=== PATIENT | male | born 1975 | race African-American/Black ===

== ENCOUNTER 2023-06-05 18:30 | Inpatient (IN) | payer OTHER ==
[2023-06-05 19:03] VITALS: BMI 22.9
[2023-06-05] MEDS ORDERED: NALOXONE HCL 0.4 MG/ML VIAL IM PRN (21:17)
[2023-06-05] MEDS ORDERED: NALOXONE HCL (KLOXXADO) 8 MG SPRAY NS PRN (21:17)
[2023-06-05] MEDS ORDERED: MAG HYDROX/AL HYDROX/SIMETH 30 ML UNIT-DOSE CUP PO PRN (21:17)
[2023-06-05] MEDS ORDERED: ONDANSETRON *ODT* 4 MG TABLET SL PRN (21:17)
[2023-06-05] MEDS ORDERED: LOPERAMIDE HCL 2 MG CAPSULE PO PRN (21:17)
[2023-06-05] MEDS ORDERED: IBUPROFEN 400 MG TABLET (FP) PO PRN (21:17)
[2023-06-05] MEDS ORDERED: BISMUTH SUBSALICYLATE 524 MG/30 ML PO PRN (21:17)
[2023-06-05] MEDS ORDERED: ACETAMINOPHEN 325 MG TABLET (FP) PO PRN (21:17)
[2023-06-05] MEDS ORDERED: BENZOCAINE/MENTHOL (CHLORASEPTIC ) LOZENGE MM PRN (21:17)
[2023-06-05] MEDS ORDERED: guaiFENesin 600 MG TABLET.ER (FP) PO PRN (21:17)
[2023-06-05] MEDS ORDERED: MAGNESIUM HYDROX 2400MG/30ML ORAL SUSPENSION 30 ML CUP PO PRN (21:17)
[2023-06-05] MEDS ORDERED: POLYETHYLENE GLYCOL (HEALTHYLAX) 3350 17 GM PACKET PO PRN (21:17)
[2023-06-05] MEDS ORDERED: BENZONATATE 200 MG CAPSULE PO PRN (21:17)
[2023-06-05] MEDS ORDERED: DICYCLOMINE HCL 10 MG CAPSULE PO PRN (21:17)
[2023-06-05] MEDS ORDERED: MELATONIN 5 MG TABLETS ONE (22:18)
[2023-06-05] MEDS ORDERED: IBUPROFEN 600 MG TABLET (FP) PO ONE (22:23)
[2023-06-05] MEDS: IBUPROFEN 600 MG TABLET (FP) PO PRN (22:45)
[2023-06-05] MEDS: MELATONIN 5 MG TABLETS PO SCH (22:47)
[2023-06-05] MEDS: THIAMINE HCL 100 MG TABLET (FP) PO SCH (22:48)
[2023-06-06] MEDS ORDERED: chlordiazePOXIDE HCL 25 MG CAPSULE PO SCH (05:00)
[2023-06-06] MEDS ORDERED: chlordiazePOXIDE HCL 25 MG CAPSULE PO PRN (09:55)
[2023-06-06] MEDS: PRENATAL VITAMINS W/ FOLIC ACID TABLET (FP) PO SCH (10:13)
[2023-06-06] MEDS: FAMOTIDINE 20 MG TABLET PO SCH (10:14)
[2023-06-06] MEDS: chlordiazePOXIDE HCL 25 MG CAPSULE PO SCH ×3 (10:37→22:21)
[2023-06-06 13:02] LABS: HEMATOCRIT 38.4 % (35.4-49); HEMOGLOBIN 13.3 GM/dL (11.7-16.9); MCH 36.5 pg (25.7-33.7); MCHC 34.7 g/dl (32.0-35.9); MEAN CELL VOLUME 105.2 fl (80-96); PLATELET COUNT 157 10^3/uL (134-434); RBC 3.65 M/mm3 (4.00-5.60); RDW 13.7 % (11.9-15.9)
[2023-06-06 13:06] LABS: POTASSIUM 4.1 mmol/L (3.5-5.1)
[2023-06-06 13:12] LABS: CALCIUM 8.8 mg/dL (8.5-10.1)
[2023-06-06 13:13] LABS: ALBUMIN 3.6 g/dl (3.4-5.0); BLOOD UREA NITROGEN 10.3 mg/dL (7-18)
[2023-06-06 13:16] LABS: CREATININE 0.7 mg/dL (0.55-1.3)
[2023-06-06 13:18] LABS: BILIRUBIN,TOTAL 1.4 mg/dL (0.2-1); TOT PROT 7.1 g/dl (6.4-8.2)
[2023-06-06] MEDS ORDERED: IBUPROFEN 600 MG TABLET (FP) PO ONE (13:32)
[2023-06-06] MEDS: IBUPROFEN 600 MG TABLET (FP) PO PRN ×2 (14:22→22:23)
[2023-06-06] MEDS: THIAMINE HCL 100 MG TABLET (FP) PO SCH (22:21)
[2023-06-06] MEDS: MELATONIN 5 MG TABLETS PO SCH (22:21)
[2023-06-07] MEDS: chlordiazePOXIDE HCL 25 MG CAPSULE PO SCH ×4 (05:41→22:10)
[2023-06-07] MEDS: PRENATAL VITAMINS W/ FOLIC ACID TABLET (FP) PO SCH (10:15)
[2023-06-07] MEDS: FAMOTIDINE 20 MG TABLET PO SCH (10:15)
[2023-06-07] MEDS: MELATONIN 5 MG TABLETS PO SCH (22:10)
[2023-06-07] MEDS: THIAMINE HCL 100 MG TABLET (FP) PO SCH (22:10)
[2023-06-08] MEDS ORDERED: chlordiazePOXIDE HCL 10 MG CAPSULE PO PRN
[2023-06-08] MEDS: chlordiazePOXIDE HCL 10 MG CAPSULE PO SCH ×4 (05:34→22:31)
[2023-06-08] MEDS: hydrOXYzine PAMOATE 25 MG CAPSULE (FP) PO PRN (10:10)
[2023-06-08] MEDS: METHOCARBAMOL 500 MG TABLET PO PRN (10:10)
[2023-06-08] MEDS: PRENATAL VITAMINS W/ FOLIC ACID TABLET (FP) PO SCH (10:10)
[2023-06-08] MEDS: FAMOTIDINE 20 MG TABLET PO SCH (10:10)
[2023-06-08] MEDS: THIAMINE HCL 100 MG TABLET (FP) PO SCH (22:31)
[2023-06-08] MEDS: MELATONIN 5 MG TABLETS PO SCH (22:31)
[2023-06-09] MEDS: chlordiazePOXIDE HCL 10 MG CAPSULE PO SCH ×2 (05:24→17:17)
[2023-06-09] MEDS: hydrOXYzine PAMOATE 25 MG CAPSULE (FP) PO PRN ×2 (10:13→22:28)
[2023-06-09] MEDS: PRENATAL VITAMINS W/ FOLIC ACID TABLET (FP) PO SCH (10:13)
[2023-06-09] MEDS: METHOCARBAMOL 500 MG TABLET PO PRN ×2 (10:13→22:28)
[2023-06-09] MEDS: FAMOTIDINE 20 MG TABLET PO SCH (10:13)
[2023-06-09 13:01] LABS: HEMATOCRIT 41.9 % (35.4-49); HEMOGLOBIN 14.4 GM/dL (11.7-16.9); MCH 36.6 pg (25.7-33.7); MCHC 34.3 g/dl (32.0-35.9); MEAN CELL VOLUME 106.6 fl (80-96); MEAN PLT VOLUME 8.7 fl (7.5-11.1); PLATELET COUNT 195 10^3/uL (134-434); RBC 3.93 M/mm3 (4.00-5.60); RDW 13.5 % (11.9-15.9); WHITE BLOOD COUNT 3.7 K/mm3 (4.0-10.0)
[2023-06-09 13:09] LABS: BILIRUBIN,TOTAL 0.7 mg/dL (0.2-1)
[2023-06-09] MEDS: THIAMINE HCL 100 MG TABLET (FP) PO SCH (22:28)
[2023-06-09] MEDS: MELATONIN 5 MG TABLETS PO SCH (22:28)
[2023-06-10] MEDS ORDERED: chlordiazePOXIDE HCL 10 MG CAPSULE PO ONE (05:00)
[2023-06-10] MEDS: FAMOTIDINE 20 MG TABLET PO SCH (10:16)
[2023-06-10] MEDS: PRENATAL VITAMINS W/ FOLIC ACID TABLET (FP) PO SCH (10:16)
[2023-06-10] MEDS: METHOCARBAMOL 500 MG TABLET PO PRN ×2 (10:16→21:38)
[2023-06-10] MEDS: hydrOXYzine PAMOATE 25 MG CAPSULE (FP) PO PRN (10:17)
[2023-06-10] MEDS: THIAMINE HCL 100 MG TABLET (FP) PO SCH (21:36)
[2023-06-10] MEDS: MELATONIN 5 MG TABLETS PO SCH (21:36)
[2023-06-11] MEDS: PRENATAL VITAMINS W/ FOLIC ACID TABLET (FP) PO SCH (10:55)
[2023-06-11] MEDS: FAMOTIDINE 20 MG TABLET PO SCH (10:55)
[2023-06-11] MEDS: MELATONIN 5 MG TABLETS PO SCH (21:28)
[2023-06-11] MEDS: THIAMINE HCL 100 MG TABLET (FP) PO SCH (21:28)
[2023-06-11] MEDS: IBUPROFEN 600 MG TABLET (FP) PO PRN (21:30)
[2023-06-11] MEDS: hydrOXYzine PAMOATE 25 MG CAPSULE (FP) PO PRN (21:30)
[2023-06-12] MEDS: PRENATAL VITAMINS W/ FOLIC ACID TABLET (FP) PO SCH (10:06)
[2023-06-12] MEDS: FAMOTIDINE 20 MG TABLET PO SCH (10:07)
[2023-06-12] MEDS: IBUPROFEN 600 MG TABLET (FP) PO PRN (10:08)
[2023-06-12] MEDS: THIAMINE HCL 100 MG TABLET (FP) PO SCH (21:41)
[2023-06-12] MEDS: MELATONIN 5 MG TABLETS PO SCH (21:42)
[2023-06-13] MEDS: FAMOTIDINE 20 MG TABLET PO SCH (10:11)
[2023-06-13] MEDS: PRENATAL VITAMINS W/ FOLIC ACID TABLET (FP) PO SCH (10:12)
[2023-06-13] MEDS: IBUPROFEN 600 MG TABLET (FP) PO PRN (10:12)
[2023-06-13] MEDS: MELATONIN 5 MG TABLETS PO SCH (21:30)
[2023-06-13] MEDS: THIAMINE HCL 100 MG TABLET (FP) PO SCH (21:30)
[2023-06-13] MEDS: ACETAMINOPHEN 325 MG TABLET (FP) PO PRN (21:31)
[2023-06-14] MEDS: FAMOTIDINE 20 MG TABLET PO SCH (10:18)
[2023-06-14] MEDS: PRENATAL VITAMINS W/ FOLIC ACID TABLET (FP) PO SCH (10:18)
[2023-06-14 16:44] LABS: INR 0.98 (0.83-1.09); PROTHROMBIN TIME (PATIENT) 11.4 SEC (9.7-13.0)
[2023-06-14] MEDS: MELATONIN 5 MG TABLETS PO SCH (21:34)
[2023-06-14] MEDS: ACETAMINOPHEN 325 MG TABLET (FP) PO PRN (21:35)
[2023-06-14] MEDS: THIAMINE HCL 100 MG TABLET (FP) PO SCH (21:35)
[2023-06-15] MEDS: FAMOTIDINE 20 MG TABLET PO SCH (10:08)
[2023-06-15] MEDS: PRENATAL VITAMINS W/ FOLIC ACID TABLET (FP) PO SCH (10:08)
[2023-06-15] MEDS: MELATONIN 5 MG TABLETS PO SCH (21:47)
[2023-06-15] MEDS: THIAMINE HCL 100 MG TABLET (FP) PO SCH (21:47)
[2023-06-15] MEDS: ACETAMINOPHEN 325 MG TABLET (FP) PO PRN (21:48)
[2023-06-16] MEDS: PRENATAL VITAMINS W/ FOLIC ACID TABLET (FP) PO SCH (09:54)
[2023-06-16] MEDS: FAMOTIDINE 20 MG TABLET PO SCH (09:54)
[2023-06-16] MEDS: ACETAMINOPHEN 325 MG TABLET (FP) PO PRN (09:55)
[2023-06-16] MEDS: MELATONIN 5 MG TABLETS PO SCH (21:29)
[2023-06-16] MEDS: THIAMINE HCL 100 MG TABLET (FP) PO SCH (21:29)
[2023-06-17] MEDS: FAMOTIDINE 20 MG TABLET PO SCH (10:21)
[2023-06-17] MEDS: PRENATAL VITAMINS W/ FOLIC ACID TABLET (FP) PO SCH (10:21)
[2023-06-17] MEDS: ACETAMINOPHEN 325 MG TABLET (FP) PO PRN (10:22)
[2023-06-17] MEDS: GABAPENTIN 300 MG CAPSULE PO SCH ×2 (14:31→21:41)
[2023-06-17] MEDS: LACTULOSE 20 GM/30 ML UDC (FOR ORAL USE ONLY) PO SCH ×2 (14:31→21:41)
[2023-06-17] MEDS: MELATONIN 5 MG TABLETS PO SCH (21:41)
[2023-06-17] MEDS: THIAMINE HCL 100 MG TABLET (FP) PO SCH (21:41)
[2023-06-17] MEDS: LIDOCAINE PATCH REMOVAL MC SCH (21:42)
[2023-06-18] MEDS: LACTULOSE 20 GM/30 ML UDC (FOR ORAL USE ONLY) PO SCH ×3 (06:49→21:32)
[2023-06-18] MEDS: LIDOCAINE 5% TOPICAL PATCH TP SCH (10:06)
[2023-06-18] MEDS: GABAPENTIN 300 MG CAPSULE PO SCH ×2 (10:06→21:31)
[2023-06-18] MEDS: PRENATAL VITAMINS W/ FOLIC ACID TABLET (FP) PO SCH (10:06)
[2023-06-18] MEDS: FAMOTIDINE 20 MG TABLET PO SCH (10:06)
[2023-06-18] MEDS: MELATONIN 5 MG TABLETS PO SCH (21:31)
[2023-06-18] MEDS: THIAMINE HCL 100 MG TABLET (FP) PO SCH (21:31)
[2023-06-18] MEDS: ACETAMINOPHEN 325 MG TABLET (FP) PO PRN (21:32)
[2023-06-18] MEDS: LIDOCAINE PATCH REMOVAL MC SCH (21:32)
[2023-06-19] MEDS: LACTULOSE 20 GM/30 ML UDC (FOR ORAL USE ONLY) PO SCH ×3 (07:04→21:27)
[2023-06-19] MEDS: GABAPENTIN 300 MG CAPSULE PO SCH ×2 (09:43→21:27)
[2023-06-19] MEDS: FAMOTIDINE 20 MG TABLET PO SCH (09:43)
[2023-06-19] MEDS: LIDOCAINE 5% TOPICAL PATCH TP SCH (09:43)
[2023-06-19] MEDS: PRENATAL VITAMINS W/ FOLIC ACID TABLET (FP) PO SCH (09:43)
[2023-06-19] MEDS: MELATONIN 5 MG TABLETS PO SCH (21:27)
[2023-06-19] MEDS: THIAMINE HCL 100 MG TABLET (FP) PO SCH (21:27)
[2023-06-19] MEDS: LIDOCAINE PATCH REMOVAL MC SCH (21:29)
[2023-06-20] MEDS: LACTULOSE 20 GM/30 ML UDC (FOR ORAL USE ONLY) PO SCH ×3 (06:56→21:39)
[2023-06-20] MEDS: FAMOTIDINE 20 MG TABLET PO SCH (10:29)
[2023-06-20] MEDS: LIDOCAINE 5% TOPICAL PATCH TP SCH (10:29)
[2023-06-20] MEDS: GABAPENTIN 300 MG CAPSULE PO SCH ×2 (10:29→21:38)
[2023-06-20] MEDS: PRENATAL VITAMINS W/ FOLIC ACID TABLET (FP) PO SCH (10:29)
[2023-06-20] MEDS: MELATONIN 5 MG TABLETS PO SCH (21:38)
[2023-06-20] MEDS: LIDOCAINE PATCH REMOVAL MC SCH (21:38)
[2023-06-20] MEDS: THIAMINE HCL 100 MG TABLET (FP) PO SCH (21:38)
[2023-06-21] MEDS: LACTULOSE 20 GM/30 ML UDC (FOR ORAL USE ONLY) PO SCH ×3 (06:22→21:08)
[2023-06-21] MEDS: LIDOCAINE 5% TOPICAL PATCH TP SCH (09:46)
[2023-06-21] MEDS: PRENATAL VITAMINS W/ FOLIC ACID TABLET (FP) PO SCH (09:46)
[2023-06-21] MEDS: GABAPENTIN 300 MG CAPSULE PO SCH ×2 (09:46→21:07)
[2023-06-21] MEDS: FAMOTIDINE 20 MG TABLET PO SCH (09:46)
[2023-06-21] MEDS: ACETAMINOPHEN 325 MG TABLET (FP) PO PRN (13:25)
[2023-06-21] MEDS: THIAMINE HCL 100 MG TABLET (FP) PO SCH (21:07)
[2023-06-21] MEDS: MELATONIN 5 MG TABLETS PO SCH (21:07)
[2023-06-21] MEDS: LIDOCAINE PATCH REMOVAL MC SCH (21:08)
[2023-06-22] MEDS: LACTULOSE 20 GM/30 ML UDC (FOR ORAL USE ONLY) PO SCH ×3 (07:01→21:31)
[2023-06-22] MEDS: FAMOTIDINE 20 MG TABLET PO SCH (09:44)
[2023-06-22] MEDS: GABAPENTIN 300 MG CAPSULE PO SCH ×2 (09:45→21:30)
[2023-06-22] MEDS: PRENATAL VITAMINS W/ FOLIC ACID TABLET (FP) PO SCH (09:45)
[2023-06-22] MEDS: LIDOCAINE 5% TOPICAL PATCH TP SCH (09:46)
[2023-06-22] MEDS: METHYL SALICYLATE/MENTHOL OINT 30 GM TUBE TP SCH (14:13)
[2023-06-22] MEDS: THIAMINE HCL 100 MG TABLET (FP) PO SCH (21:30)
[2023-06-22] MEDS: MELATONIN 5 MG TABLETS PO SCH (21:30)
[2023-06-22] MEDS: LIDOCAINE PATCH REMOVAL MC SCH (21:31)
[2023-06-23] MEDS: LACTULOSE 20 GM/30 ML UDC (FOR ORAL USE ONLY) PO SCH ×3 (06:50→21:37)
[2023-06-23] MEDS: GABAPENTIN 300 MG CAPSULE PO SCH ×2 (09:49→21:37)
[2023-06-23] MEDS: PRENATAL VITAMINS W/ FOLIC ACID TABLET (FP) PO SCH (09:49)
[2023-06-23] MEDS: FAMOTIDINE 20 MG TABLET PO SCH (09:49)
[2023-06-23] MEDS: LIDOCAINE 5% TOPICAL PATCH TP SCH (09:50)
[2023-06-23] MEDS: METHYL SALICYLATE/MENTHOL OINT 30 GM TUBE TP SCH (09:50)
[2023-06-23] MEDS: MELATONIN 5 MG TABLETS PO SCH (21:37)
[2023-06-23] MEDS: THIAMINE HCL 100 MG TABLET (FP) PO SCH (21:37)
[2023-06-23] MEDS: LIDOCAINE PATCH REMOVAL MC SCH (21:37)
[2023-06-24] MEDS: LACTULOSE 20 GM/30 ML UDC (FOR ORAL USE ONLY) PO SCH ×3 (06:28→21:32)
[2023-06-24] MEDS: FAMOTIDINE 20 MG TABLET PO SCH (09:38)
[2023-06-24] MEDS: GABAPENTIN 300 MG CAPSULE PO SCH ×2 (09:38→23:45)
[2023-06-24] MEDS: PRENATAL VITAMINS W/ FOLIC ACID TABLET (FP) PO SCH (09:38)
[2023-06-24] MEDS: LIDOCAINE 5% TOPICAL PATCH TP SCH (09:39)
[2023-06-24] MEDS: METHYL SALICYLATE/MENTHOL OINT 30 GM TUBE TP SCH (10:10)
[2023-06-24] MEDS: CYANOCOBALAMIN (VITAMIN B-12) 1000 MCG/1 ML VIAL IM SCH (10:11)
[2023-06-24] MEDS: ACETAMINOPHEN 325 MG TABLET (FP) PO PRN (10:47)
[2023-06-24] MEDS: MELATONIN 5 MG TABLETS PO SCH (21:32)
[2023-06-24] MEDS: LIDOCAINE PATCH REMOVAL MC SCH (21:32)
[2023-06-24] MEDS: THIAMINE HCL 100 MG TABLET (FP) PO SCH (23:45)
[2023-06-25] MEDS: LACTULOSE 20 GM/30 ML UDC (FOR ORAL USE ONLY) PO SCH ×3 (06:33→21:40)
[2023-06-25] MEDS: GABAPENTIN 300 MG CAPSULE PO SCH ×2 (09:59→21:40)
[2023-06-25] MEDS: FAMOTIDINE 20 MG TABLET PO SCH (09:59)
[2023-06-25] MEDS: PRENATAL VITAMINS W/ FOLIC ACID TABLET (FP) PO SCH (09:59)
[2023-06-25] MEDS: METHYL SALICYLATE/MENTHOL OINT 30 GM TUBE TP SCH (10:00)
[2023-06-25] MEDS: LIDOCAINE 5% TOPICAL PATCH TP SCH (10:01)
[2023-06-25] MEDS: MELATONIN 5 MG TABLETS PO SCH (21:39)
[2023-06-25] MEDS: THIAMINE HCL 100 MG TABLET (FP) PO SCH (21:40)
[2023-06-25 22:33] LABS: PH,URINE 5.5 (5.0-8.0); URINE APPEARANCE CLEAR; URINE BILIRUBIN NEGATIVE (NEGATIVE); URINE COLOR YELLOW; URINE GLUCOSE (UA) NEGATIVE (NEGATIVE); URINE KETONE TRACE (NEGATIVE); URINE LEUK ESTERASE NEGATIVE (NEGATIVE); URINE NITRITE NEGATIVE (NEGATIVE); URINE PROTEIN NEGATIVE (NEGATIVE); URINE UROBILINOGEN 0.2 mg/dL (0.2-1.0)
[2023-06-25] MEDS: LIDOCAINE PATCH REMOVAL MC SCH (22:36)
[2023-06-26] MEDS: LACTULOSE 20 GM/30 ML UDC (FOR ORAL USE ONLY) PO SCH ×3 (06:48→21:17)
[2023-06-26] MEDS: PRENATAL VITAMINS W/ FOLIC ACID TABLET (FP) PO SCH (09:44)
[2023-06-26] MEDS: GABAPENTIN 300 MG CAPSULE PO SCH ×2 (09:45→21:17)
[2023-06-26] MEDS: FAMOTIDINE 20 MG TABLET PO SCH (09:45)
[2023-06-26] MEDS: LIDOCAINE 5% TOPICAL PATCH TP SCH (09:45)
[2023-06-26] MEDS: METHYL SALICYLATE/MENTHOL OINT 30 GM TUBE TP SCH (09:46)
[2023-06-26] MEDS: MELATONIN 5 MG TABLETS PO SCH (21:17)
[2023-06-26] MEDS: LIDOCAINE PATCH REMOVAL MC SCH (21:17)
[2023-06-26] MEDS: THIAMINE HCL 100 MG TABLET (FP) PO SCH (21:17)
[2023-06-27] MEDS: LACTULOSE 20 GM/30 ML UDC (FOR ORAL USE ONLY) PO SCH ×3 (06:50→21:35)
[2023-06-27] MEDS: IBUPROFEN 600 MG TABLET (FP) PO PRN ×2 (08:03→21:36)
[2023-06-27] MEDS: LIDOCAINE 5% TOPICAL PATCH TP SCH (09:52)
[2023-06-27] MEDS: PRENATAL VITAMINS W/ FOLIC ACID TABLET (FP) PO SCH (09:52)
[2023-06-27] MEDS: FAMOTIDINE 20 MG TABLET PO SCH (09:52)
[2023-06-27] MEDS: GABAPENTIN 300 MG CAPSULE PO SCH ×2 (09:52→21:35)
[2023-06-27] MEDS: METHYL SALICYLATE/MENTHOL OINT 30 GM TUBE TP SCH (09:52)
[2023-06-27] MEDS: LIDOCAINE PATCH REMOVAL MC SCH (21:35)
[2023-06-27] MEDS: THIAMINE HCL 100 MG TABLET (FP) PO SCH (21:35)
[2023-06-27] MEDS: MELATONIN 5 MG TABLETS PO SCH (21:35)
[2023-06-28] MEDS: LACTULOSE 20 GM/30 ML UDC (FOR ORAL USE ONLY) PO SCH ×3 (06:17→21:16)
[2023-06-28] MEDS: METHYL SALICYLATE/MENTHOL OINT 30 GM TUBE TP SCH (09:49)
[2023-06-28] MEDS: LIDOCAINE 5% TOPICAL PATCH TP SCH (09:49)
[2023-06-28] MEDS: GABAPENTIN 300 MG CAPSULE PO SCH ×2 (09:50→21:15)
[2023-06-28] MEDS: PRENATAL VITAMINS W/ FOLIC ACID TABLET (FP) PO SCH (09:50)
[2023-06-28] MEDS: FAMOTIDINE 20 MG TABLET PO SCH (09:50)
[2023-06-28] MEDS: THIAMINE HCL 100 MG TABLET (FP) PO SCH (21:15)
[2023-06-28] MEDS: LIDOCAINE PATCH REMOVAL MC SCH (21:15)
[2023-06-28] MEDS: MELATONIN 5 MG TABLETS PO SCH (21:15)
[2023-06-29] MEDS: LACTULOSE 20 GM/30 ML UDC (FOR ORAL USE ONLY) PO SCH ×3 (06:30→21:22)
[2023-06-29] MEDS ORDERED: COLLOIDAL OATMEAL 1 BAR EACH TP PRN (09:19)
[2023-06-29] MEDS: LIDOCAINE 5% TOPICAL PATCH TP SCH (09:42)
[2023-06-29] MEDS: GABAPENTIN 300 MG CAPSULE PO SCH ×2 (09:42→21:22)
[2023-06-29] MEDS: PRENATAL VITAMINS W/ FOLIC ACID TABLET (FP) PO SCH (09:42)
[2023-06-29] MEDS: FAMOTIDINE 20 MG TABLET PO SCH (09:42)
[2023-06-29] MEDS: METHYL SALICYLATE/MENTHOL OINT 30 GM TUBE TP SCH (10:24)
[2023-06-29] MEDS: LIDOCAINE PATCH REMOVAL MC SCH (21:21)
[2023-06-29] MEDS: MELATONIN 5 MG TABLETS PO SCH (21:22)
[2023-06-29] MEDS: THIAMINE HCL 100 MG TABLET (FP) PO SCH (21:22)
[2023-06-30] MEDS: LACTULOSE 20 GM/30 ML UDC (FOR ORAL USE ONLY) PO SCH ×3 (06:29→21:35)
[2023-06-30] MEDS: PRENATAL VITAMINS W/ FOLIC ACID TABLET (FP) PO SCH (10:07)
[2023-06-30] MEDS: LIDOCAINE 5% TOPICAL PATCH TP SCH (10:07)
[2023-06-30] MEDS: METHYL SALICYLATE/MENTHOL OINT 30 GM TUBE TP SCH (10:08)
[2023-06-30] MEDS: FAMOTIDINE 20 MG TABLET PO SCH (10:09)
[2023-06-30] MEDS: GABAPENTIN 300 MG CAPSULE PO SCH ×2 (10:09→21:35)
[2023-06-30] MEDS: MELATONIN 5 MG TABLETS PO SCH (21:34)
[2023-06-30] MEDS: THIAMINE HCL 100 MG TABLET (FP) PO SCH (21:35)
[2023-06-30] MEDS: LIDOCAINE PATCH REMOVAL MC SCH (21:35)
[2023-07-01] MEDS: LACTULOSE 20 GM/30 ML UDC (FOR ORAL USE ONLY) PO SCH ×3 (06:43→23:40)
[2023-07-01 06:59] VITALS: RESP 18
[2023-07-01] MEDS: PRENATAL VITAMINS W/ FOLIC ACID TABLET (FP) PO SCH (09:52)
[2023-07-01] MEDS: GABAPENTIN 300 MG CAPSULE PO SCH ×2 (09:53→23:50)
[2023-07-01] MEDS: LIDOCAINE 5% TOPICAL PATCH TP SCH (09:53)
[2023-07-01] MEDS: FAMOTIDINE 20 MG TABLET PO SCH (09:53)
[2023-07-01] MEDS: METHYL SALICYLATE/MENTHOL OINT 30 GM TUBE TP SCH (09:55)
[2023-07-01] MEDS: CYANOCOBALAMIN (VITAMIN B-12) 1000 MCG/1 ML VIAL IM SCH (11:11)
[2023-07-01] MEDS: LIDOCAINE PATCH REMOVAL MC SCH (23:40)
[2023-07-01] MEDS: MELATONIN 5 MG TABLETS PO SCH (23:40)
[2023-07-01] MEDS: THIAMINE HCL 100 MG TABLET (FP) PO SCH (23:51)
[2023-07-02] MEDS: LACTULOSE 20 GM/30 ML UDC (FOR ORAL USE ONLY) PO SCH ×2 (07:13→13:58)
[2023-07-02 07:23] VITALS: BP 109/74; PULSE 101; TEMP 97.3
[2023-07-02] MEDS: METHYL SALICYLATE/MENTHOL OINT 30 GM TUBE TP SCH (10:32)
[2023-07-02] MEDS: LIDOCAINE 5% TOPICAL PATCH TP SCH (10:32)
[2023-07-02] MEDS: FAMOTIDINE 20 MG TABLET PO SCH (10:33)
[2023-07-02] MEDS: GABAPENTIN 300 MG CAPSULE PO SCH (10:33)
[2023-07-02] MEDS: PRENATAL VITAMINS W/ FOLIC ACID TABLET (FP) PO SCH (10:33)
== END 2023-07-02 01:41 | disposition home or self-care (01) | DRG 895 ==
LOC: YASAS 18:30 → Y6N 22:53 → Y5N 06-10 16:22
PROVIDERS: ADMIT Allergy & Immunology; ATTEND Psychiatry & Neurology Pain Medicine
PROC: HZ2ZZZZ Detoxification Services for Substance Abuse Treatment (ICD-10-PCS; 2023-06-05)
PROC: HZ42ZZZ Group Counseling for Substance Abuse Treatment, Cognitive-Behavioral (ICD-10-PCS; principal; 2023-06-10)
DX: F10.20 Alcohol dependence, uncomplicated (principal); E72.20 Disorder of urea cycle metabolism, unspecified; Z59.00 Homelessness unspecified; F10.282 Alcohol dependence with alcohol-induced sleep disorder; F10.24 Alcohol dependence with alcohol-induced mood disorder; F31.9 Bipolar disorder, unspecified; M54.50 Low back pain, unspecified; R79.89 Other specified abnormal findings of blood chemistry; Z87.891 Personal history of nicotine dependence; Z86.69 Personal history of other diseases of the nervous system and sense organs; Z56.0 Unemployment, unspecified
CPT/HCPCS: 36415; 80053; 81003; 82140; 82247; 82272; 84450; 85027; 85610; 86780; 86803; 87635; 93005; 93010

== ENCOUNTER 2023-09-16 13:56 | Inpatient (IN) | payer OTHER ==
[2023-09-16 15:08] VITALS: BMI 24.0
[2023-09-16] MEDS ORDERED: POLYETHYLENE GLYCOL (HEALTHYLAX) 3350 17 GM PACKET PO PRN (19:07)
[2023-09-16] MEDS ORDERED: BENZONATATE 200 MG CAPSULE PO PRN (19:07)
[2023-09-16] MEDS ORDERED: MAG HYDROX/AL HYDROX/SIMETH 30 ML UNIT-DOSE CUP PO PRN (19:07)
[2023-09-16] MEDS ORDERED: guaiFENesin 600 MG TABLET.ER (FP) PO PRN (19:07)
[2023-09-16] MEDS ORDERED: MAGNESIUM HYDROX 2400MG/30ML ORAL SUSPENSION 30 ML CUP PO PRN (19:07)
[2023-09-16] MEDS ORDERED: BENZOCAINE/MENTHOL (CHLORASEPTIC ) LOZENGE MM PRN (19:07)
[2023-09-16] MEDS ORDERED: P-EPHED 60MG/TRIPROLIDI 2.5MG TABLET PO PRN (19:07)
[2023-09-16] MEDS ORDERED: ACETAMINOPHEN 325 MG TABLET (FP) PO PRN (19:07)
[2023-09-16] MEDS ORDERED: IBUPROFEN 600 MG TABLET (FP) PO PRN (19:07)
[2023-09-16] MEDS ORDERED: LOPERAMIDE HCL 2 MG CAPSULE PO PRN (19:07)
[2023-09-16] MEDS ORDERED: hydrOXYzine PAMOATE 25 MG CAPSULE (FP) PO PRN (19:07)
[2023-09-16] MEDS ORDERED: IBUPROFEN 400 MG TABLET (FP) PO PRN (19:07)
[2023-09-16] MEDS ORDERED: COLLOIDAL OATMEAL 1 BAR EACH TP PRN (19:07)
[2023-09-16] MEDS: THIAMINE HCL 100 MG TABLET (FP) PO SCH (21:41)
[2023-09-16] MEDS: MELATONIN 5 MG TABLETS PO SCH (21:41)
[2023-09-17] MEDS: PRENATAL VITAMINS W/ FOLIC ACID TABLET (FP) PO SCH (10:04)
[2023-09-17 15:13] LABS: URINE APPEARANCE CLEAR; URINE BILIRUBIN NEGATIVE (NEGATIVE); URINE COLOR YELLOW; URINE GLUCOSE (UA) NEGATIVE (NEGATIVE); URINE KETONE NEGATIVE (NEGATIVE); URINE LEUK ESTERASE NEGATIVE (NEGATIVE); URINE NITRITE NEGATIVE (NEGATIVE); URINE PROTEIN NEGATIVE (NEGATIVE)
[2023-09-17] MEDS: MELATONIN 5 MG TABLETS PO SCH (21:15)
[2023-09-17] MEDS: THIAMINE HCL 100 MG TABLET (FP) PO SCH (21:15)
[2023-09-18] MEDS: PRENATAL VITAMINS W/ FOLIC ACID TABLET (FP) PO SCH (09:58)
[2023-09-18] MEDS: THIAMINE HCL 100 MG TABLET (FP) PO SCH (21:20)
[2023-09-18] MEDS: MELATONIN 5 MG TABLETS PO SCH (21:20)
[2023-09-19] MEDS: PRENATAL VITAMINS W/ FOLIC ACID TABLET (FP) PO SCH (10:12)
[2023-09-19] MEDS: MELATONIN 5 MG TABLETS PO SCH (21:13)
[2023-09-19] MEDS: THIAMINE HCL 100 MG TABLET (FP) PO SCH (21:13)
[2023-09-20] MEDS: PRENATAL VITAMINS W/ FOLIC ACID TABLET (FP) PO SCH (10:29)
[2023-09-20 11:00] LABS: BASO % 0.3 % (0-2.0); EOS % 2.6 % (0-4.5); HEMATOCRIT 44.1 % (35.4-49); HEMOGLOBIN 14.5 GM/dL (11.7-16.9); LYMPH % 40.8 % (8-40); MCH 31.2 pg (25.7-33.7); MCHC 32.8 g/dl (32.0-35.9); MEAN CELL VOLUME 95.3 fl (80-96); MEAN PLT VOLUME 9.7 fl (7.5-11.1); NEUT % 46.3 % (42.8-82.8); PLATELET COUNT 160 10^3/uL (134-434); RBC 4.63 M/mm3 (4.00-5.60); RDW 12.5 % (11.9-15.9)
[2023-09-20 11:04] LABS: POTASSIUM 4.3 mmol/L (3.5-5.1)
[2023-09-20 11:21] LABS: ALBUMIN 3.4 g/dl (3.4-5.0); BLOOD UREA NITROGEN 12.9 mg/dL (7-18); CALCIUM 8.3 mg/dL (8.5-10.1)
[2023-09-20 11:24] LABS: CREATININE 0.8 mg/dL (0.55-1.3)
[2023-09-20 11:25] LABS: BILIRUBIN,TOTAL 0.4 mg/dL (0.2-1); TOT PROT 6.5 g/dl (6.4-8.2)
[2023-09-20] MEDS: THIAMINE HCL 100 MG TABLET (FP) PO SCH (21:20)
[2023-09-20] MEDS: MELATONIN 5 MG TABLETS PO SCH (21:20)
[2023-09-21] MEDS: PRENATAL VITAMINS W/ FOLIC ACID TABLET (FP) PO SCH (10:04)
[2023-09-21] MEDS: THIAMINE HCL 100 MG TABLET (FP) PO SCH (21:19)
[2023-09-21] MEDS: MELATONIN 5 MG TABLETS PO SCH (21:20)
[2023-09-22] MEDS: PRENATAL VITAMINS W/ FOLIC ACID TABLET (FP) PO SCH (09:59)
[2023-09-22] MEDS: THIAMINE HCL 100 MG TABLET (FP) PO SCH (21:20)
[2023-09-22] MEDS: MELATONIN 5 MG TABLETS PO SCH (21:20)
[2023-09-23] MEDS: PRENATAL VITAMINS W/ FOLIC ACID TABLET (FP) PO SCH (10:36)
[2023-09-23] MEDS: THIAMINE HCL 100 MG TABLET (FP) PO SCH (21:18)
[2023-09-23] MEDS: MELATONIN 5 MG TABLETS PO SCH (21:18)
[2023-09-24] MEDS: PRENATAL VITAMINS W/ FOLIC ACID TABLET (FP) PO SCH (09:56)
[2023-09-24] MEDS: THIAMINE HCL 100 MG TABLET (FP) PO SCH (21:32)
[2023-09-24] MEDS: MELATONIN 5 MG TABLETS PO SCH (21:32)
[2023-09-25] MEDS: PRENATAL VITAMINS W/ FOLIC ACID TABLET (FP) PO SCH (10:16)
[2023-09-25] MEDS: THIAMINE HCL 100 MG TABLET (FP) PO SCH (21:24)
[2023-09-25] MEDS: MELATONIN 5 MG TABLETS PO SCH (21:24)
[2023-09-26] MEDS: PRENATAL VITAMINS W/ FOLIC ACID TABLET (FP) PO SCH (09:45)
[2023-09-26] MEDS: MELATONIN 5 MG TABLETS PO SCH (21:13)
[2023-09-26] MEDS: THIAMINE HCL 100 MG TABLET (FP) PO SCH (21:13)
[2023-09-27] MEDS: PRENATAL VITAMINS W/ FOLIC ACID TABLET (FP) PO SCH (10:10)
[2023-09-27] MEDS: THIAMINE HCL 100 MG TABLET (FP) PO SCH (21:13)
[2023-09-27] MEDS: MELATONIN 5 MG TABLETS PO SCH (21:13)
[2023-09-28] MEDS: PRENATAL VITAMINS W/ FOLIC ACID TABLET (FP) PO SCH (10:06)
[2023-09-28] MEDS: THIAMINE HCL 100 MG TABLET (FP) PO SCH (21:11)
[2023-09-28] MEDS: MELATONIN 5 MG TABLETS PO SCH (21:11)
[2023-09-29] MEDS: PRENATAL VITAMINS W/ FOLIC ACID TABLET (FP) PO SCH (10:09)
[2023-09-29] MEDS: THIAMINE HCL 100 MG TABLET (FP) PO SCH (21:12)
[2023-09-29] MEDS: MELATONIN 5 MG TABLETS PO SCH (21:12)
[2023-09-30] MEDS: PRENATAL VITAMINS W/ FOLIC ACID TABLET (FP) PO SCH (10:12)
[2023-09-30] MEDS: THIAMINE HCL 100 MG TABLET (FP) PO SCH (21:18)
[2023-09-30] MEDS: MELATONIN 5 MG TABLETS PO SCH (21:18)
[2023-10-01] MEDS: PRENATAL VITAMINS W/ FOLIC ACID TABLET (FP) PO SCH (10:14)
[2023-10-01] MEDS: THIAMINE HCL 100 MG TABLET (FP) PO SCH (21:07)
[2023-10-01] MEDS: DIVALPROEX SODIUM 250 MG TABLET E.C. PO SCH (21:07)
[2023-10-01] MEDS: MELATONIN 5 MG TABLETS PO SCH (21:07)
[2023-10-02] MEDS: risperiDONE 0.5 MG TABLET PO SCH (10:38)
[2023-10-02] MEDS: DIVALPROEX SODIUM 250 MG TABLET E.C. PO SCH ×2 (10:38→21:21)
[2023-10-02] MEDS: PRENATAL VITAMINS W/ FOLIC ACID TABLET (FP) PO SCH (10:38)
[2023-10-02] MEDS: MELATONIN 5 MG TABLETS PO SCH (21:21)
[2023-10-02] MEDS: THIAMINE HCL 100 MG TABLET (FP) PO SCH (21:21)
[2023-10-03] MEDS: DIVALPROEX SODIUM 250 MG TABLET E.C. PO SCH ×2 (10:11→21:24)
[2023-10-03] MEDS: PRENATAL VITAMINS W/ FOLIC ACID TABLET (FP) PO SCH (10:11)
[2023-10-03] MEDS: risperiDONE 0.5 MG TABLET PO SCH (10:11)
[2023-10-03] MEDS: THIAMINE HCL 100 MG TABLET (FP) PO SCH (21:24)
[2023-10-03] MEDS: MELATONIN 5 MG TABLETS PO SCH (21:24)
[2023-10-04] MEDS: PRENATAL VITAMINS W/ FOLIC ACID TABLET (FP) PO SCH (10:25)
[2023-10-04] MEDS: risperiDONE 0.5 MG TABLET PO SCH (10:25)
[2023-10-04] MEDS: DIVALPROEX SODIUM 250 MG TABLET E.C. PO SCH ×2 (10:26→21:10)
[2023-10-04] MEDS: THIAMINE HCL 100 MG TABLET (FP) PO SCH (21:10)
[2023-10-04] MEDS: MELATONIN 5 MG TABLETS PO SCH (21:10)
[2023-10-05] MEDS: PRENATAL VITAMINS W/ FOLIC ACID TABLET (FP) PO SCH (10:29)
[2023-10-05] MEDS: DIVALPROEX SODIUM 250 MG TABLET E.C. PO SCH ×2 (10:29→21:19)
[2023-10-05] MEDS: risperiDONE 0.5 MG TABLET PO SCH (10:29)
[2023-10-05] MEDS: MELATONIN 5 MG TABLETS PO SCH (21:19)
[2023-10-05] MEDS: THIAMINE HCL 100 MG TABLET (FP) PO SCH (21:19)
[2023-10-06] MEDS: PRENATAL VITAMINS W/ FOLIC ACID TABLET (FP) PO SCH (10:33)
[2023-10-06] MEDS: risperiDONE 0.5 MG TABLET PO SCH (10:33)
[2023-10-06] MEDS: DIVALPROEX SODIUM 250 MG TABLET E.C. PO SCH ×2 (10:33→21:11)
[2023-10-06] MEDS: MELATONIN 5 MG TABLETS PO SCH (21:11)
[2023-10-06] MEDS: THIAMINE HCL 100 MG TABLET (FP) PO SCH (21:11)
[2023-10-07] MEDS: PRENATAL VITAMINS W/ FOLIC ACID TABLET (FP) PO SCH (10:31)
[2023-10-07] MEDS: DIVALPROEX SODIUM 250 MG TABLET E.C. PO SCH ×2 (10:31→21:28)
[2023-10-07] MEDS: risperiDONE 0.5 MG TABLET PO SCH (10:31)
[2023-10-07] MEDS: MELATONIN 5 MG TABLETS PO SCH (21:28)
[2023-10-07] MEDS: THIAMINE HCL 100 MG TABLET (FP) PO SCH (21:28)
[2023-10-08] MEDS: DIVALPROEX SODIUM 250 MG TABLET E.C. PO SCH ×2 (10:07→21:26)
[2023-10-08] MEDS: risperiDONE 0.5 MG TABLET PO SCH (10:07)
[2023-10-08] MEDS: PRENATAL VITAMINS W/ FOLIC ACID TABLET (FP) PO SCH (10:07)
[2023-10-08] MEDS: MELATONIN 5 MG TABLETS PO SCH (21:26)
[2023-10-08] MEDS: THIAMINE HCL 100 MG TABLET (FP) PO SCH (21:26)
[2023-10-09] MEDS: risperiDONE 0.5 MG TABLET PO SCH (10:11)
[2023-10-09] MEDS: PRENATAL VITAMINS W/ FOLIC ACID TABLET (FP) PO SCH (10:11)
[2023-10-09] MEDS: DIVALPROEX SODIUM 250 MG TABLET E.C. PO SCH ×2 (10:11→21:31)
[2023-10-09] MEDS: THIAMINE HCL 100 MG TABLET (FP) PO SCH (21:31)
[2023-10-09] MEDS: MELATONIN 5 MG TABLETS PO SCH (21:31)
[2023-10-10] MEDS: DIVALPROEX SODIUM 250 MG TABLET E.C. PO SCH ×2 (10:23→21:00)
[2023-10-10] MEDS: PRENATAL VITAMINS W/ FOLIC ACID TABLET (FP) PO SCH (10:23)
[2023-10-10] MEDS: risperiDONE 0.5 MG TABLET PO SCH (10:23)
[2023-10-10] MEDS: THIAMINE HCL 100 MG TABLET (FP) PO SCH (21:00)
[2023-10-10] MEDS: MELATONIN 5 MG TABLETS PO SCH (21:00)
[2023-10-11] MEDS: risperiDONE 0.5 MG TABLET PO SCH (10:01)
[2023-10-11] MEDS: DIVALPROEX SODIUM 250 MG TABLET E.C. PO SCH ×2 (10:01→21:15)
[2023-10-11] MEDS: PRENATAL VITAMINS W/ FOLIC ACID TABLET (FP) PO SCH (10:01)
[2023-10-11] MEDS: MELATONIN 5 MG TABLETS PO SCH (21:15)
[2023-10-11] MEDS: THIAMINE HCL 100 MG TABLET (FP) PO SCH (21:15)
[2023-10-12] MEDS: PRENATAL VITAMINS W/ FOLIC ACID TABLET (FP) PO SCH (10:10)
[2023-10-12] MEDS: risperiDONE 0.5 MG TABLET PO SCH (10:10)
[2023-10-12] MEDS: DIVALPROEX SODIUM 250 MG TABLET E.C. PO SCH ×2 (10:10→21:11)
[2023-10-12] MEDS: MELATONIN 5 MG TABLETS PO SCH (21:11)
[2023-10-12] MEDS: THIAMINE HCL 100 MG TABLET (FP) PO SCH (21:11)
[2023-10-13] MEDS: DIVALPROEX SODIUM 250 MG TABLET E.C. PO SCH ×2 (10:12→21:05)
[2023-10-13] MEDS: risperiDONE 0.5 MG TABLET PO SCH (10:12)
[2023-10-13] MEDS: PRENATAL VITAMINS W/ FOLIC ACID TABLET (FP) PO SCH (10:12)
[2023-10-13] MEDS: THIAMINE HCL 100 MG TABLET (FP) PO SCH (21:06)
[2023-10-13] MEDS: MELATONIN 5 MG TABLETS PO SCH (21:06)
[2023-10-14 07:03] VITALS: BP 114/78; PULSE 89; RESP 18; TEMP 97.5
== END 2023-10-14 09:09 | disposition home or self-care (01) | DRG 895 ==
LOC: YASAS 13:56 → Y3W 19:34
PROVIDERS: ADMIT Allergy & Immunology; ATTEND Psychiatry & Neurology Pain Medicine
PROC: HZ42ZZZ Group Counseling for Substance Abuse Treatment, Cognitive-Behavioral (ICD-10-PCS; principal; 2023-09-16)
DX: F10.20 Alcohol dependence, uncomplicated (principal); Z59.02 Unsheltered homelessness; F10.282 Alcohol dependence with alcohol-induced sleep disorder; F10.24 Alcohol dependence with alcohol-induced mood disorder; F31.9 Bipolar disorder, unspecified; Z86.69 Personal history of other diseases of the nervous system and sense organs; Z91.148 Patient's other noncompliance with medication regimen for other reason
CPT/HCPCS: 36415; 80053; 81003; 85025; 87635

== ENCOUNTER 2024-11-23 10:54 | Inpatient (IN) | payer OTHER ==
[2024-11-23 11:28] VITALS: BMI 24.4
[2024-11-23] MEDS ORDERED: BISMUTH SUBSALICYLATE 524 MG/30 ML PO PRN (12:25)
[2024-11-23] MEDS ORDERED: ONDANSETRON *ODT* 4 MG TABLET SL PRN (12:25)
[2024-11-23] MEDS ORDERED: IBUPROFEN 400 MG TABLET (FP) PO PRN (12:25)
[2024-11-23] MEDS ORDERED: NALOXONE (NARCAN) HCL 4 MG/0.1 ML SPRAY NS PRN (12:25)
[2024-11-23] MEDS ORDERED: BENZONATATE 200 MG CAPSULE PO PRN (12:25)
[2024-11-23] MEDS ORDERED: MAGNESIUM HYDROX 2400MG/30ML ORAL SUSPENSION 30 ML CUP PO PRN (12:25)
[2024-11-23] MEDS ORDERED: chlordiazePOXIDE HCL 25 MG CAPSULE PO PRN (12:25)
[2024-11-23] MEDS ORDERED: LOPERAMIDE HCL 2 MG CAPSULE PO PRN (12:25)
[2024-11-23] MEDS ORDERED: IBUPROFEN 600 MG TABLET (FP) PO PRN (12:25)
[2024-11-23] MEDS ORDERED: MAG HYDROX/AL HYDROX/SIMETH 30 ML UNIT-DOSE CUP PO PRN (12:25)
[2024-11-23] MEDS ORDERED: ACETAMINOPHEN 325 MG TABLET (FP) PO PRN (12:25)
[2024-11-23] MEDS ORDERED: guaiFENesin 600 MG TABLET.ER (FP) PO PRN (12:25)
[2024-11-23] MEDS ORDERED: POLYETHYLENE GLYCOL (HEALTHYLAX) 3350 17 GM PACKET PO PRN (12:25)
[2024-11-23] MEDS ORDERED: DICYCLOMINE HCL 10 MG CAPSULE PO PRN (12:25)
[2024-11-23] MEDS ORDERED: BENZOCAINE/MENTHOL (CHLORASEPTIC ) LOZENGE MM PRN (12:25)
[2024-11-23] MEDS: PRENATAL VITAMINS W/ FOLIC ACID TABLET (FP) PO SCH (13:09)
[2024-11-23] MEDS: NICOTINE 14 MG/24 HOURS TOPICAL PATCH TD SCH (13:09)
[2024-11-23] MEDS: NITROFURANTOIN MONOHYD/M-CRYST 100 MG CAPSULE PO ONE (14:29)
[2024-11-23] MEDS: LACTULOSE 20 GM/30 ML UDC (FOR ORAL USE ONLY) PO SCH (14:29)
[2024-11-23] MEDS: METHOCARBAMOL 500 MG TABLET PO PRN (17:48)
[2024-11-23] MEDS: hydrOXYzine PAMOATE 25 MG CAPSULE (FP) PO PRN (17:48)
[2024-11-23] MEDS: chlordiazePOXIDE HCL 25 MG CAPSULE PO SCH (17:48)
[2024-11-23] MEDS ORDERED: MELATONIN 5 MG TABLETS PO SCH (22:00)
[2024-11-23] MEDS: THIAMINE 100 MG TABLET PO SCH (22:13)
[2024-11-23] MEDS: GABAPENTIN 300 MG CAPSULE PO SCH (22:14)
[2024-11-23] MEDS: MELATONIN 5 MG TABLETS PO SCH (22:14)
[2024-11-23] MEDS: NITROFURANTOIN MONOHYD/M-CRYST 100 MG CAPSULE PO SCH (23:14)
[2024-11-24 09:40] LABS: CHLORIDE 99 mmol/L (98-107); HEMOGLOBIN 13.8 GM/dL (11.7-16.9); MCH 34.6 pg (25.7-33.7); MCHC 34.4 g/dl (32.0-35.9); MEAN CELL VOLUME 100.6 fl (80-96); PLATELET COUNT 87 10^3/uL (134-434); RBC 3.98 M/mm3 (4.00-5.60); RDW 14.7 % (11.9-15.9); SODIUM 138 mmol/L (136-145); WHITE BLOOD COUNT 2.6 K/mm3 (4.0-10.0)
[2024-11-24 09:57] LABS: POTASSIUM 2.6 mmol/L (3.5-5.1)
[2024-11-24] MEDS ORDERED: PATIENT'S OWN MEDICATION (NON-FORMULARY) (Meloxicam [Meloxicam] 7.5 MG Tablet) PO SCH (10:00)
[2024-11-24 10:09] LABS: ALBUMIN 3.8 g/dl (3.4-5.0); ANION GAP 13 mmol/L (4-13); BLOOD UREA NITROGEN 6.7 mg/dL (7-18); CO2 26 mmol/L (21-32); GLUCOSE,RANDOM 103 mg/dL (74-106)
[2024-11-24 10:12] LABS: CREATININE 0.6 mg/dL (0.55-1.3); SGOT/AST 93 U/L (15-37); SGPT/ALT 44 U/L (13-61)
[2024-11-24 10:14] LABS: BILIRUBIN,TOTAL 2.3 mg/dL (0.2-1); TOT PROT 6.4 g/dl (6.4-8.2)
[2024-11-24 10:15] LABS: ALK PHOS 67 U/L (45-117)
[2024-11-24] MEDS: FAMOTIDINE 20 MG TABLET PO SCH (10:17)
[2024-11-24] MEDS: POTASSIUM CHLORIDE ORAL LIQUID 20 MEQ/15 ML PO ONE ×2 (10:37→17:47)
[2024-11-24] MEDS: risperiDONE 0.5 MG TABLET PO SCH (11:26)
[2024-11-24] MEDS ORDERED: POTASSIUM CHLORIDE ORAL LIQUID 20 MEQ/15 ML PO ONE (16:00)
[2024-11-25] MEDS: chlordiazePOXIDE HCL 25 MG CAPSULE PO SCH (05:35)
[2024-11-26] MEDS ORDERED: chlordiazePOXIDE HCL 10 MG CAPSULE PO PRN
[2024-11-26] MEDS: chlordiazePOXIDE HCL 10 MG CAPSULE PO SCH (05:37)
[2024-11-27] MEDS: chlordiazePOXIDE HCL 10 MG CAPSULE PO SCH (05:31)
[2024-11-28] MEDS: chlordiazePOXIDE HCL 10 MG CAPSULE PO ONE (05:53)
[2024-11-28 08:35] VITALS: BP 110/78; PULSE 69; RESP 169; TEMP 96.9
== END 2024-11-28 09:55 | disposition home or self-care (01) | DRG 897 ==
LOC: YASAS 10:54 → Y3N 13:17
PROVIDERS: ADMIT Allergy & Immunology; ATTEND Allergy & Immunology
PROC: HZ2ZZZZ Detoxification Services for Substance Abuse Treatment (ICD-10-PCS; principal; 2024-11-23)
DX: F10.230 Alcohol dependence with withdrawal, uncomplicated (principal); N39.0 Urinary tract infection, site not specified; F17.210 Nicotine dependence, cigarettes, uncomplicated; F31.9 Bipolar disorder, unspecified; F20.9 Schizophrenia, unspecified; E87.6 Hypokalemia; Z91.148 Patient's other noncompliance with medication regimen for other reason
CPT/HCPCS: 36415; 80053; 80305; 80307; 84132; 85027; 86780; 93005; 93010